=== PATIENT | male | born 1975 | race Caucasian/White ===

== ENCOUNTER 2022-05-11 01:22 | Emergency (ER) | payer MEDICAID, SELFPAY ==
[2022-05-11 01:31] VITALS: BP 156/93; PULSE 62; RESP 18; TEMP 36.5; O2SAT 97; BMI 32.3
--- NOTE | 2022-05-11 02:37 | CTR_ITS ---
PROCEDURE INFORMATION: Exam: CT Abdomen And Pelvis Without Contrast Exam date and time: 05/11/2022 2:55 AM Age: 46 years old Clinical indication: Nausea and vomiting; Abdominal pain; Localized; Left lower quadrant (llq); Patient HX: Llq/groin pain with n/v and dysuria. ; Additional info: Llq pain, n/v, pain, HX of stone TECHNIQUE: Imaging protocol: Computed tomography of the abdomen and pelvis without contrast. Radiation optimization: All CT scans at this facility use at least one of these dose optimization techniques: automated exposure control; mA and/or kV adjustment per patient size (includes targeted exams where dose is matched to clinical indication); or iterative reconstruction. COMPARISON: No relevant prior studies available. RADIATION DOSE METRICS: Total DLP (mGy-cm): 894.03 FINDINGS: Lungs: The lung bases are clear. No effusion Liver: Normal. No mass. Gallbladder and bile ducts: No wall thickening, pericholecystic fluid or stones. Pancreas: Normal. No ductal dilation. Spleen: Normal. No splenomegaly. Adrenal glands: Normal. No mass. Kidneys and ureters: 5 mm mildly obstructing left distal ureteral stone. 3 mm nonobstructing right renal pelvis stone. Stomach and bowel: Diverticulosis without diverticulitis. Appendix: No evidence of appendicitis. Intraperitoneal space: Unremarkable. No free air. No significant fluid collection. Vasculature: Unremarkable. No abdominal aortic aneurysm. Lymph nodes: Unremarkable. No enlarged lymph nodes. Urinary bladder: Unremarkable as visualized. Reproductive: Unremarkable as visualized. Bones/joints: Unremarkable. No acute fracture. Soft tissues: Unremarkable. CT/CT kidney stone [id number] IMPRESSION: 1. 5 mm mildly obstructing left distal ureteral stone. 2. 3 mm nonobstructing right renal pelvis stone. 3. Diverticulosis without diverticulitis.
--- NOTE | 2022-05-11 02:39 | W.ED.ABDPA2 ---
Documented by User: CITLALY Pacheco 05/11/22 03:15 HPI - Abdominal Pain General: Chief Complaint: Abdominal Pain Stated Complaint: Possible Kidney Stones Time Seen by Provider: 05/11/22 01:35 Source: patient and family Mode of arrival: ambulatory Limitations: no limitations History of Present Illness: Patient presents to the emergency department tonight accompanied by his for evaluation treatment of left lower quadrant/left groin pain. Patient states he has felt a little off for couple weeks but, tonight his pain got significantly worse. He does have a history of previous kidney stone on the left side. He notes worsening waves of pain with associated nausea and vomiting. stated he had some Flomax and Toradol still at the house and took some earlier in the evening but has not seem to help. Associated Symptoms: Reports nausea and vomiting Review of Systems General: Reports: 10 or more systems reviewed and unremarkable except in HPI and below GI: Reports: abdominal pain (LLQ), nausea and vomiting PFSH ED PFSH: Medical History Urolithiasis Multi stone former. May 2022 5 mm left distal ureteral stone and additional RIGHT renal pelvic stone (3 mm) Family History Mother Healthy adult Father Healthy adult Social History Smoking and tobacco status: never smoked Alcohol intake: current Alcohol intake frequency: holidays/special occasions only Adopted: No Marital status: Current occupational status: employed History of recent travel: No Physical Exam Const: COMMON NORMALS: patient oriented x3 and alert; apparent distress (patient is obviously uncomfortable) HENMT: COMMON NORMALS: normocephalic, atraumatic, hearing grossly normal bilaterally and moist oral mucous membranes HEAD & SCALP: normocephalic and atraumatic Eye: COMMON NORMALS: Equal, round and reactive pupils present, EOMs intact bilaterally and conjunctivae normal CONJUNCTIVA: Yes conjunctivae normal PUPIL: Yes Equal, round and reactive pupils present Neck/C-Spine: COMMON NORMALS: full ROM and no JVD Lymph: LYMPHATIC: no lymphadenopathy noted Resp: COMMON NORMALS: normal respiratory effort, No retractions, No use of accessory muscles and clear to auscultation bilaterally AUSCULTATION: clear to auscultation bilaterally Cardio: COMMON NORMALS: no JVD, regular rate and regular rhythm RATE: regular rate RHYTHM: regular rhythm : COMMON NORMALS: Yes no CVA tenderness BLADDER/KIDNEY EXAM: Yes no CVA tenderness Back/Pelvis: COMMON NORMALS: no CVA tenderness, no thoracic nor lumbar tenderness and thoraco-lumbar ROM normal Extremity: COMMON NORMALS: normal to inspection, full ROM and capillary refill normal Neuro: COMMON NORMALS: patient oriented x3 SENSORIUM/ORIENTATION: Yes alert Psych: COMMON NORMALS: mental status grossly normal, Normal thought process present, cooperative, normal affect and activity/motor behavior normal THOUGHT PROCESS: Normal thought process present Skin: COMMON NORMALS: no rashes or lesions noted and no wounds NARRATIVE SKIN EXAM: Patient appears pale. GENERAL SKIN EXAM: no rashes or lesions noted Course Vital Signs: Vital signs: Vital Signs Temperature 97.7 F 05/11/22 01:31 Pulse Rate 61 05/11/22 05:32 Respiratory Rate 16 05/11/22 05:32 Blood Pressure 157/97 05/11/22 05:32 Pulse Oximetry 97 05/11/22 05:32 Oxygen Delivery Me thod 05/11/22 04:00 Oxygen Flow Rate 2 05/11/22 04:00 MDM - Abdominal Pain Medical Decision Making Patient presents emergency department today for evaluation treatment of severe left lower quadrant and left groin pain and. He has had a history of kidney stones in the past and indicated this felt similar. He had some leftover medication at home which he took this past evening without relief. Patient comes in still nauseated and vomiting. He appears pale at bedside. Urinalysis collected and IV placed to collect labs. Patient was also given fluids, Toradol, Zofran, and morphine. CT renal stone ordered. Transfer of care to Dr Lizama given at 0315 Differential Diagnosis Likely abdominal pain, acute appendicitis, calculus of kidney, constipation, diverticulitis, gastroenteritis and small bowel obstruction Lab Data 05/11/22 02:45 05/11/22 02:45 Labs/Radiology: Radiology Impressions Abdomen/Pelvis CT 05/11/22 02:37 IMPRESSION: 1. 5 mm mildly obstructing left distal ureteral stone. 2. 3 mm nonobstructing right renal pelvis stone. 3. Diverticulosis without diverticulitis. Laboratory Results WBC 7.7 10^3/uL (4.0-10.0) 05/11/22 02:45 RBC 5.37 10^6/uL (4.1-5.3) H 05/11/22 02:45 Hgb 15.3 g/dL (11.7-16.6) 05/11/22 02:45 Hct 45.3 % (42.0-52.0) 05/11/22 02:45 MCV 84.4 fl (80-94) 05/11/22 02:45 MCH 28.5 pg (28.0-34.0) 05/11/22 02:45 MCHC 33.8 g/dL (30.0-36.0) 05/11/22 02:45 RDW 12.9 % (12.1-15.1) 05/11/22 02:45 Plt Count 174 10^3/cmm (130-400) 05/11/22 02:45 MPV 11.4 fL (7.4-10.4) H 05/11/22 02:45 Neut % (Auto) 82.9 % 05/11/22 02:45 Lymph % (Auto) 11.0 % 05/11/22 02:45 Glasscock % (Auto) 5.0 % 05/11/22 02:45 Eos % (Auto) 0.4 % 05/11/22 02:45 Baso % (Auto) 0.3 % 05/11/22 02:45 Neut # (Auto) 6.35 10^3/uL (1.8-7.7) 05/11/22 02:45 Lymph # (Auto) 0.8 10^3/uL (0.8-4.8) 05/11/22 02:45 Glasscock # (Auto) 0.4 10^3/uL (0.2-0.9) 05/11/22 02:45 Eos # (Auto) 0.0 10^3/uL (0.0-0.8) 05/11/22 02:45 Baso # (Auto) 0.0 10^3/uL (0.0-0.1) 05/11/22 02:45 Nucleated RBC % (auto) 0 % 05/11/22 02:45 Nucleated RBCs # 0.0 /100WBC 05/11/22 02:45 Sodium 138 mmol/L (136-145) 05/11/22 02:45 Potassium 4.1 mmol/L (3.5-5.1) 05/11/22 02:45 Chloride 102 mmol/L (98-107) 05/11/22 02:45 Carbon Dioxide 24 mmol/L (22-29) 05/11/22 02:45 Anion Gap 16.1 (5-19) 05/11/22 02:45 BUN 21 mg/dL (6-20) H 05/11/22 02:45 Creatinine 1.3 mg/dL (0.7-1.2) H 05/11/22 02:45 GFR Calculation 59.7 mL/min (90-130) L 05/11/22 02:45 Glucose 122 mg/dL (65-115) H 05/11/22 02:45 Calculated Osmolality 290 mOsm/kg (285-295) 05/11/22 02:45 Calcium 8.8 mg/dL (8.5-10.5) 05/11/22 02:45 Total Bilirubin 0.5 mg/dL (0.15-1.2) 05/11/22 02:45 AST 40 U/L (0-40) 05/11/22 02:45 ALT 53 U/L (0-41) H 05/11/22 02:45 Alkaline Phosphatase 76 U/L (40-130) 05/11/22 02:45 Total Protein 6.9 g/dL (6.6-8.7) 05/11/22 02:45 Albumin 4.6 g/dL (3.5-5.2) 05/11/22 02:45 Globulin 2.3 g/dL (1.3-4.6) 05/11/22 02:45 Urine Color Yellow (Yellow) 05/11/22 02:30 Urine Appearance Clear (CLEAR) 05/11/22 02:30 Urine pH 5 (5-7) 05/11/22 02:30 Ur Specific Maud 1.030 (1.005-1.030) 05/11/22 02:30 Urine Protein Trace (Negative) 05/11/22 02:30 Urine Glucose (UA) Norm (Normal) 05/11/22 02:30 Urine Ketones Negative (Negative) 05/11/22 02:30 Urine Blood Neg (Negative) 05/11/22 02:30 Urine Nitrate Negative (Negative) 05/11/22 02:30 Urine Bilirubin Neg (Negative) 05/11/22 02:30 Urine Urobilinogen Norm mg/dL (Negative) 05/11/22 02:30 Ur Leukocyte Esterase Negative (Negative) 05/11/22 02:30 Urine RBC None /hpf (0-2) 05/11/22 02:30 Urine WBC None /hpf (0-5) 05/11/22 02:30 Ur Squamous Epith Cells None /hpf (0-5) 05/11/22 02:30 Calcium Oxalate Crystal 0-4 /hpf H 05/11/22 02:30 Amorphous Sediment 3+ /hpf 05/11/22 02:30 Urine Bacteria None /hpf (NONE) 05/11/22 02:30 Discharge Plan Discharge Patient Disposition: Home Clinical Impression: Ureterolithiasis Condition: Stable Prescriptions: New ondansetron 4 mg tablet,disintegrating 4 mg PO Q8H PRN (Reason: nausea and vomiting) Qty: 15 0RF oxycodone 5 mg tablet 5 mg PO Q4H PRN (Reason: pain) Qty: 20 0RF Flomax 0.4 mg capsule 0.4 mg PO DAILY Qty: 20 0RF Discharge Orders: Discharge ED (Routine); Ordered 05/11/22 Ordered By: Heron Lizama Discharge Diet: Usual diet Discharge Activity: Increase activity as tolerated Patient Instructions: Ureteral Stones (ED), Opioid Safety Activity Restrictions/Additional Instructions: Thank you for visiting the emergency department. You were seen and evaluated for abdominal pain. The most likely cause of your symptoms is a kidney stone that has descended into the ureter. I will prescribe pain medications, antinausea medication, and Flomax. I will message case management for follow-up with urology. Please strain your urine. You may use aolo-kef-bjhzgei medications such as acetaminophen and ibuprofen for pain however please do not exceed the daily recommended dosage as listed on the packaging and please keep in mind that many namebrand medications contain the same active ingredients. Please avoid these medications if previously instructed to do so by another physician due to other underlying medical condition. Return to the emergency department for uncontrolled symptoms or anything else that you are concerned about and feel needs emergency department evaluation. Sign Out Sign Out Data: Patient Sign Out occurred on 05/11/22 at 03:23. Patient's care was discussed, and care was transferred from to Heron Lizama MD. Coding Level of Care Code ED Dental Office Coordinator for Chg Fwd Exam Comprehensive Documented by User: Heron Lizama MD 05/18/22 06:09 HPI - Abdominal Pain General: Chief Complaint: Abdominal Pain Stated Complaint: Possible Kidney Stones Time Seen by Provider: 05/11/22 01:35 PFSH ED PFSH: Medical History Urolithiasis Multi stone former. May 2022 5 mm left distal ureteral stone and additional RIGHT renal pelvic stone (3 mm) Family History Mother Healthy adult Father Healthy adult Social History Smoking and tobacco status: never smoked Alcohol intake: current Alcohol intake frequency: holidays/special occasions only Adopted: No Marital status: Current occupational status: employed History of recent travel: No Course Vital Signs: Vital signs: Vital Signs Temperature 97.7 F 05/11/22 01:31 Pulse Rate 61 05/11/22 05:32 Respiratory Rate 16 05/11/22 05:32 Blood Pressure 157/97 05/11/22 05:32 Pulse Oximetry 97 05/11/22 05:32 Oxygen Delivery Me thod 05/11/22 04:00 Oxygen Flow Rate 2 05/11/22 04:00 MDM - Abdominal Pain Medical Decision Making Patient presents emergency department today for evaluation treatment of severe left lower quadrant and left groin pain and. He has had a history of kidney stones in the past and indicated this felt similar. He had some leftover medication at home which he took this past evening without relief. Patient comes in still nauseated and vomiting. He appears pale at bedside. Urinalysis collected and IV placed to collect labs. Patient was also given fluids, Toradol, Zofran, and morphine. CT renal stone ordered. Transfer of care to Dr Lizama given at 0315 Patient care handoff received from CITLALY Good. I reviewed documentation. I personally saw and evaluated patient and reperformed lau portions of E/M. Laboratory studies reviewed with hematuria noted, mild elevation of ALT and creatinine, no evidence of significant infection. CT imaging notable for 5 mm obstructing left distal ureteral stone. Patient feels improved with symptom control with fluids, analgesia, antiemetic. Plan to have patient follow-up with urology. The results of ED evaluation were discussed with the patient including prescriptions and/or symptomatic cares (if applicable) including appropriate and responsible use, followup plan, and return precautions. The patient verbalized understanding and felt safe for discharge. Lab Data 05/11/22 02:45 05/11/22 02:45 Labs/Radiology: Radiology Impressions Abdomen/Pelvis CT 05/11/22 02:37 IMPRESSION: 1. 5 mm mildly obstructing left distal ureteral stone. 2. 3 mm nonobstructing right renal pelvis stone. 3. Diverticulosis without diverticulitis. Laboratory Results WBC 7.7 10^3/uL (4.0-10.0) 05/11/22 02:45 RBC 5.37 10^6/uL (4.1-5.3) H 05/11/22 02:45 Hgb 15.3 g/dL (11.7-16.6) 05/11/22 02:45 Hct 45.3 % (42.0-52.0) 05/11/22 02:45 MCV 84.4 fl (80-94) 05/11/22 02:45 MCH 28.5 pg (28.0-34.0) 05/11/22 02:45 MCHC 33.8 g/dL (30.0-36.0) 05/11/22 02:45 RDW 12.9 % (12.1-15.1) 05/11/22 02:45 Plt Count 174 10^3/cmm (130-400) 05/11/22 02:45 MPV 11.4 fL (7.4-10.4) H 05/11/22 02:45 Neut % (Auto) 82.9 % 05/11/22 02:45 Lymph % (Auto) 11.0 % 05/11/22 02:45 Glasscock % (Auto) 5.0 % 05/11/22 02:45 Eos % (Auto) 0.4 % 05/11/22 02:45 Baso % (Auto) 0.3 % 05/11/22 02:45 Neut # (Auto) 6.35 10^3/uL (1.8-7.7) 05/11/22 02:45 Lymph # (Auto) 0.8 10^3/uL (0.8-4.8) 05/11/22 02:45 Glasscock # (Auto) 0.4 10^3/uL (0.2-0.9) 05/11/22 02:45 Eos # (Auto) 0.0 10^3/uL (0.0-0.8) 05/11/22 02:45 Baso # (Auto) 0.0 10^3/uL (0.0-0.1) 05/11/22 02:45 Nucleated RBC % (auto) 0 % 05/11/22 02:45 Nucleated RBCs # 0.0 /100WBC 05/11/22 02:45 Sodium 138 mmol/L (136-145) 05/11/22 02:45 Potassium 4.1 mmol/L (3.5-5.1) 05/11/22 02:45 Chloride 102 mmol/L (98-107) 05/11/22 02:45 Carbon Dioxide 24 mmol/L (22-29) 05/11/22 02:45 Anion Gap 16.1 (5-19) 05/11/22 02:45 BUN 21 mg/dL (6-20) H 05/11/22 02:45 Creatinine 1.3 mg/dL (0.7-1.2) H 05/11/22 02:45 GFR Calculation 59.7 mL/min (90-130) L 05/11/22 02:45 Glucose 122 mg/dL (65-115) H 05/11/22 02:45 Calculated Osmolality 290 mOsm/kg (285-295) 05/11/22 02:45 Calcium 8.8 mg/dL (8.5-10.5) 05/11/22 02:45 Total Bilirubin 0.5 mg/dL (0.15-1.2) 05/11/22 02:45 AST 40 U/L (0-40) 05/11/22 02:45 ALT 53 U/L (0-41) H 05/11/22 02:45 Alkaline Phosphatase 76 U/L (40-130) 05/11/22 02:45 Total Protein 6.9 g/dL (6.6-8.7) 05/11/22 02:45 Albumin 4.6 g/dL (3.5-5.2) 05/11/22 02:45 Globulin 2.3 g/dL (1.3-4.6) 05/11/22 02:45 Urine Color Yellow (Yellow) 05/11/22 02:30 Urine Appearance Clear (CLEAR) 05/11/22 02:30 Urine pH 5 (5-7) 05/11/22 02:30 Ur Specific Maud 1.030 (1.005-1.030) 05/11/22 02:30 Urine Protein Trace (Negative) 05/11/22 02:30 Urine Glucose (UA) Norm (Normal) 05/11/22 02:30 Urine Ketones Negative (Negative) 05/11/22 02:30 Urine Blood Neg (Negative) 05/11/22 02:30 Urine Nitrate Negative (Negative) 05/11/22 02:30 Urine Bilirubin Neg (Negative) 05/11/22 02:30 Urine Urobilinogen Norm mg/dL (Negative) 05/11/22 02:30 Ur Leukocyte Esterase Negative (Negative) 05/11/22 02:30 Urine RBC None /hpf (0-2) 05/11/22 02:30 Urine WBC None /hpf (0-5) 05/11/22 02:30 Ur Squamous Epith Cells None /hpf (0-5) 05/11/22 02:30 Calcium Oxalate Crystal 0-4 /hpf H 05/11/22 02:30 Amorphous Sediment 3+ /hpf 05/11/22 02:30 Urine Bacteria None /hpf (NONE) 05/11/22 02:30 Discharge Plan Discharge Patient Disposition: Home Clinical Impression: Ureterolithiasis Condition: Stable Prescriptions: New ondansetron 4 mg tablet,disintegrating 4 mg PO Q8H PRN (Reason: nausea and vomiting) Qty: 15 0RF oxycodone 5 mg tablet 5 mg PO Q4H PRN (Reason: pain) Qty: 20 0RF Flomax 0.4 mg capsule 0.4 mg PO DAILY Qty: 20 0RF Discharge Orders: Discharge ED (Routine); Ordered 05/11/22 Ordered By: Heron Lizama Discharge Diet: Usual diet Discharge Activity: Increase activity as tolerated Patient Instructions: Ureteral Stones (ED), Opioid Safety Activity Restrictions/Additional Instructions: Thank you for visiting the emergency department. You were seen and evaluated for abdominal pain. The most likely cause of your symptoms is a kidney stone that has descended into the ureter. I will prescribe pain medications, antinausea medication, and Flomax. I will message case management for follow-up with urology. Please strain your urine. You may use rttf-okj-viaenym medications such as acetaminophen and ibuprofen for pain however please do not exceed the daily recommended dosage as listed on the packaging and please keep in mind that many namebrand medications contain the same active ingredients. Please avoid these medications if previously instructed to do so by another physician due to other underlying medical condition. Return to the emergency department for uncontrolled symptoms or anything else that you are concerned about and feel needs emergency department evaluation. Sign Out Sign Out Data: Patient Sign Out occurred on 05/11/22 at 03:23. Patient's care was discussed, and care was transferred from to Heron Lizama MD. Coding Level of Care Code ED Dental Office Coordinator for Chg Fwd Exam Comprehensive
[2022-05-11] MEDS: ondansetron 2 mg/ML SDV 2 mL 4 MG IVP (02:45)
[2022-05-11] MEDS: ketorolac 30 mg/mL INJ IVP (02:47)
[2022-05-11 02:50] VITALS: RESP 16
[2022-05-11] MEDS: morphine 4 mg/mL SDV 1 mL IVP ×2 (02:50→05:01)
[2022-05-11] MEDS: sodium chloride 0.9% 1,000 ML 999 ML IV (02:56)
[2022-05-11 03:06] LABS: Basophils % 0.3 %; Eosinophils % 0.4 %; Hematocrit 45.3 % (42.0-52.0); Hemoglobin 15.3 g/dL (11.7-16.6); Lymphocytes # 0.8 10^3/uL (0.8-4.8); Mean Corpuscular HGB Conc 33.8 g/dL (30.0-36.0); Mean Corpuscular Hemoglobin 28.5 pg (28.0-34.0); Mean Corpuscular Volume 84.4 fl (80-94); Mean Platelet Volume 11.4 fL (7.4-10.4); Monocytes # 0.4 10^3/uL (0.2-0.9); Neutrophils # 6.35 10^3/uL (1.8-7.7); Neutrophils % 82.9 %; Nucleated Red Blood Cells % 0 %; Platelet Count 174 10^3/cmm (130-400); Red Blood Count 5.37 10^6/uL (4.1-5.3); Red Cell Distribution Width 12.9 % (12.1-15.1); White Blood Count 7.7 10^3/uL (4.0-10.0)
[2022-05-11 03:06] LABS: Add Urine Microscopic? YES; Bilirubin Urine Neg (Negative); Blood Urine Neg (Negative); Glucose Urine UA Norm (Normal); Ketones Urine Negative (Negative); Leukocyte Esterase Urine Negative (Negative); Nitrate Urine Negative (Negative); Protein Urine Trace (Negative); Urine Appearance Clear (CLEAR); Urine Color Yellow (Yellow); Urobilinogen Urine Norm (Negative); pH Urine 5 (5-7)
[2022-05-11 03:07] VITALS: BP 140/73; PULSE 68; RESP 16; O2SAT 92
--- NOTE | 2022-05-11 03:11 | PC.NURSE ---
patient resting in bed, NAD notes at this time. No needs voiced. will continue to monitor
[2022-05-11 03:25] LABS: Alanine Aminotransferase 53 U/L (0-41); Albumin Level 4.6 g/dL (3.5-5.2); Alkaline Phosphatase 76 U/L (40-130); Anion Gap 16.1 (5-19); Aspartate Amino Transferase 40 U/L (0-40); Blood Urea Nitrogen 21 mg/dL (6-20); Calcium 8.8 mg/dL (8.5-10.5); Carbon Dioxide 24 mmol/L (22-29); Chloride 102 mmol/L (98-107); Globulin 2.3 g/dL (1.3-4.6); Glomerular Filtration Rate 59.7 mL/min (90-130); Glucose 122 mg/dL (65-115); Osmolality Calculated 290 mOsm/kg (285-295); Potassium 4.1 mmol/L (3.5-5.1); Sodium 138 mmol/L (136-145); Total Bilirubin 0.5 mg/dL (0.15-1.2); Total Protein 6.9 g/dL (6.6-8.7)
[2022-05-11 03:30] LABS: Add Urine Culture? No; Amorphous Sediment Urine 3+ /hpf; Calcium Oxalate Crystals Urine 0-4 /hpf
[2022-05-11 04:00] VITALS: BP 150/77; PULSE 66; O2SAT 100
[2022-05-11 05:01] VITALS: RESP 16
[2022-05-11 05:32] VITALS: BP 157/97; PULSE 61; RESP 16; O2SAT 97
--- NOTE | 2022-05-11 09:29 | DCPLANNER ---
Addendum entered by Alaina Noyola 05/21/22 14:47: Patient had a follow up appointment scheduled with urology - patient did attend appointment Addendum entered by Alaina Noyola 05/12/22 10:36: Patient has a follow up appointment scheduled for Saturday, May 14, 2022 at 7:[address] Robbins at urology. Clinic will call patient with appointment information. Original Note: volunteer services manager had message to schedule a follow up appointment for patient with urology. volunteer services manager sent patients information to the front office staff at urology. Patients information will be printed and reviewed. Clinic will call patient with appointment information.
== END 2022-05-11 05:33 | disposition home or self-care (01) ==
PROVIDERS: Physician Assistant; Emergency Provider Emergency Medicine
DX: N20.1 Calculus of ureter (principal)
CPT/HCPCS: 74176; 80053; 81001; 85025; 96361; 96374; 96375; 96376; 99285; J1885; J2270; J2405; J7030

== ENCOUNTER 2022-05-14 07:08 | Outpatient (CLI) | payer MEDICAID, SELFPAY ==
--- NOTE | 2022-05-14 07:22 | XR_ITS ---
WS: [id number] XR KUB [id number] REASON FOR EXAM: stones FINDINGS: The small right intrarenal calculus identified on the previous CT scan of 05/11/2022 is not readily id entifiable. There is a calcification in the left lower pelvis consistent with the calculus at the left ureteral v esicle junction demonstrated on the recent CT. No other abnormality of the abdomen. XR/XR KUB [id number] IMPRESSION: Distal left ureteral calculus.
== END 2022-05-14 07:09 | disposition home or self-care (01) ==
LOC: RAD 07:10
PROVIDERS: Visit Provider Urology
DX: N20.1 Calculus of ureter (principal)
CPT/HCPCS: 74018; 81003

== ENCOUNTER 2022-08-02 13:51 | Outpatient (CLI) | payer MEDICAID, SELFPAY ==
--- NOTE | 2022-08-02 14:12 | XR_ITS ---
WS: [email or web address] XR KUB [id number] REASON FOR EXAM: STONES/CALCULUS OF L URETER FINDINGS: No intrarenal or abdominal ureteral calculi are identified. There is a 5 mm angular calcification in the left pelvis. The location is unchanged compared to 2022. CT scan of 05/11/2022 demonstrated the calcification represent a calculus at the left ureterovesical j unction. No other significant abdominal finding. XR/XR KUB [id number] IMPRESSION: Distal left ureteral calculus as above.
== END 2022-08-02 13:52 | disposition home or self-care (01) ==
PROVIDERS: Visit Provider Urology
DX: N20.1 Calculus of ureter (principal)
CPT/HCPCS: 74018; 81003

== ENCOUNTER 2022-08-25 15:05 | Outpatient (CLI) | payer MEDICAID, SELFPAY ==
--- NOTE | 2022-08-25 15:18 | XR_ITS ---
WS: [id number] Exam: XR KUB [id number] Date/Time of Exam: 08/25/2022 3:18 PM Reason For Exam: STONES No bowel obstruction or free air. No calcifications seen in the region of the kidneys. No sign of org an enlargement. A 5 mm calcification is again noted in the left pelvis and may represent the previous ly reported distal left ureteral stone. It is slightly more distal in location than noted on the prio r study. It might be at the UV junction or within the bladder. Regional bony elements are intact. XR/XR KUB [id number] IMPRESSION: 1. 5 mm left pelvic calcification slightly more inferior in location than noted on the prior study. This may represent the previously reported urinary tract s tone that may be near the UV junction or in the bladder.
== END 2022-08-25 15:06 | disposition home or self-care (01) ==
LOC: RAD 15:13
PROVIDERS: PCP Urology; Visit Provider Urology
DX: N20.9 Urinary calculus, unspecified (principal); N20.1 Calculus of ureter
CPT/HCPCS: 74018; 81003; 99214

== ENCOUNTER 2022-09-01 05:41 | Day surgery (SDC) | payer MEDICAID, SELFPAY ==
[2022-08-31 10:36] VITALS: BMI 31.4
[2022-09-01] VITALS (8 sets, daily range): BP systolic 121–160; BP diastolic 75–97; PULSE 63–85; RESP 18; TEMP 36.3–36.6; O2SAT 94–98
--- NOTE | 2022-09-01 05:48 | SC_ITS ---
WS: [id number] for Urology REASON FOR EXAM: Left ureteroscopy FINDINGS: Persistent distal left ureteral calculus. Left ureteral stent placement. Proximal portion of the ureteral stent is in proper position. SC/C-[facility] for [facility] IMPRESSION: Left ureteral stent placement.
--- NOTE | 2022-09-01 05:48 | XRR_ITS ---
PROCEDURE INFORMATION: Exam: XR Abdomen Exam date and time: 09/01/2022 5:55 AM Age: 47 years old Clinical indication: Condition or disease; Kidney or ureter condition; Calculus (stone) in kidney; Additional info: Preop left ureteroscopy for refractory left distal ureteral TECHNIQUE: Imaging protocol: Radiologic exam of the abdomen. Views: Frontal supine view of the abdomen. 1 View. COMPARISON: 1. CR XR KUB [id number] 08/25/2022 3:[address] kidney stone [id number] 05/11/2022 2:55 AM FINDINGS: Gastrointestinal tract: Bowel gas pattern is unremarkable. No sign of obstruction. Intraperitoneal space: There is a 5 mm calcification in the deep pelvis on the left. No visible stones on the right. Bones/joints: Bones are unremarkable. XR/XR KUB [id number] IMPRESSION: Persistent 5 mm stone at the left ureterovesical junction since 05/11/2022.
[2022-09-01] MEDS: sodium chloride 0.9% 1,000 ML 30 ML IV (06:11)
--- NOTE | 2022-09-01 06:30 | ANES.PREANE2 ---
Pre-Anesthetic Assessment Height/Weight: Height 1.8 m Weight 102.058 kg Temp Pulse Resp BP Pulse Ox 97.4 F L 75 18 160/95 98 09/01/22 06:13 09/01/22 06:13 09/01/22 06:13 09/01/22 06:13 09/01/22 06:13 Preop Diagnosis: Refractory left distal ureteral stone Operation Date: 09/01/22 07:00 Proposed Procedures p CYSTOSCOPY LEFT: RETROGRADE,URETEROSCOPY, LASER STENT [id number] Mod 26 36677,N20.0(Not Applicable) - Eliecer Robbins MD s Retrograde Pyelogram(Left) - Eliecer Robbins MD s Laser Lithotripsy(Left) - MD juliana Cooley Ureteral Stent Placement(Left) - Eliecer Robbins MD Familial anesthetic complications: None Was Beta Stella taken within 24 hours: N/A Was Clonidine taken within 24 hours: N/A Last intake: Intake Last Liquid Date 08/31/22 Last Liquid Time 23:00 Last Solid Date 08/31/22 Last Solid Time 21:00 Social No alcohol and No tobacco Exam alert, oriented x 3, clear to auscultation bilaterally and regular rate & rhythm Airway Mallampati: Class II Dentition: other (missing) Anesthetic Plan ASA status: 1 Anesthesia: General Risk of > 500 ml blood loss (7ml/kg in children): No Medications/Allergies Home Medications Medication Instructions Recorded Confirmed Last Taken Type ondansetron 4 mg disintegrating 4 mg PO Q8H PRN nausea and 05/11/22 09/01/22 Unknown Rx tablet vomiting #15 tabs oxycodone 5 mg tablet 5 mg PO Q4H PRN pain #20 tabs 05/11/22 08/31/22 Unknown Rx tamsulosin 0.4 mg capsule (Flomax) 0.4 mg PO DAILY #20 caps 05/11/22 09/01/22 Unknown Rx Allergies Allergy/AdvReac Type Severity Reaction Status Date / Time No Known Allergies Allergy Verified 08/31/22 10:32 Current Medications Generic Name Dose Route Start Last Admin Trade Name Freq PRN Reason Stop Dose Admin Sodium Chloride 1,000 mls @ 30 mls/hr 09/01/22 06:00 09/01/22 06:11 Sodium Chloride 0.9% IV 05/04/23 05:59 30 mls/hr .Q24H ATR Administration PFSH Anesthesia Medical History Urolithiasis Multi stone former. May 2022 5 mm left distal ureteral stone and additional RIGHT renal pelvic stone (3 mm) Family History Mother Healthy adult Father Healthy adult Social History (Updated 08/25/22 @ 15:54 by Hawa Salazar LPN) Smoking and tobacco status: never smoked Alcohol intake: current Alcohol intake frequency: holidays/special occasions only Adopted: No Marital status: Current occupational status: employed Data Anesthesia Cardiac Studies: No Data to Display
--- NOTE | 2022-09-01 07:02 | P.HPUD_ITS ---
Surgery/Procedure H&P Update DATE OF PROCEDURE: September 01, 2022 DATE H&P PERFORMED: 08/25/22 H&P UPDATE INFORMATION: I have reviewed H&P completed within last 30 days, I have examined patient prior to procedure, No changes to prior documentation and H&P is in [facility] [place] [facility] on date indicated PREOP DIAGNOSIS: Refractory left distal ureteral stone PLANNED PROCEDURE: Operation Date: 09/01/22 07:00 Proposed Procedures p CYSTOSCOPY LEFT: RETROGRADE,URETEROSCOPY, LASER STENT [id number] [facility] [place] [id number],N20.0(Not Applicable) - Eliecer Robbins MD s Retrograde Pyelogram(Left) - Eliecer Robbins MD s Laser Lithotripsy(Left) - MD juliana Cooley Ureteral Stent Placement(Left) - Eliecer Robbins MD
--- NOTE | 2022-09-01 07:03 | PM.OP ---
Operative Report Date of procedure: September 01, 2022 Pre-op diagnosis: Refractory left distal ureteral stone Post-op diagnosis: Refractory left distal ureteral stone Procedure done: 1. Cystoscopy, left retrograde ureteropyelogram 2. LEFT ureteroscopy, stone extraction, stent Implants: Left ureteral stent (4.5 Z[place]ian by 30 cm double-pigtail without string) Specimens removed/disposition: Stone Pathology: Left ureteral stone Surgeon: Rosendo Estimated blood loss: Minimal Urine output: Not measured Complications: None Findings: Anesthesia: General Condition: Stable Disposition: PACU Intraoperative findings: The stone was not impacted but there was a narrowed area just distal to the stone impeding its passage After dilation of the intramural tunnel and distal ureteral narrowing, the stone was removed intact easily. Did not require laser. Stent placed in left indwelling Brief History: Malcom is a very pleasant 47-year-old white male recently diagnosed with a left distal ureteral stone on CT scan. He was given a prolonged course of time to see if he could pass a stone but failed to do so. Ultimately decided to proceed with endoscopic treatment of the stone. They report a KUB last July that showed similar appearance of a calcification in that area. He had a single day of symptoms and then none after that and presumed that he had passed the stone. Did not catch it. Its not clear that this is a different stone or the same stone. The degree of dilation of the kidney was significant but not traumatic. On one of his KUBs more recently it appeared that the stone had potentially migrated slightly distally. We reviewed possibly a staged procedure if there is severe edema around the stone that would require stenting for passive dilation in order to safely access the stone with ureteroscopy. We also reviewed the very rare chance of inability to bridge the stone at all with endoscopy or a wire which would necessitate antegrade stent placement with interventional radiology facility. All of this was explained in detail. We also reviewed the typical perioperative limitations and expectations according to the stent and time in. Procedure: After routine preoperative evaluation examination and obtaining of informed consent he was taken to the operating suite on 09/01/2022 where general anesthesia was administered without difficulty after appropriate timeout was performed, SCDs confirmed to be functioning, preoperative antibiotics administered, beta-loy protocol confirmed. Prepped and draped in usual sterile fashion in dorsolithotomy position pain careful attention to avoiding pressure points. 21 [place] cystoscope with 30 degree lens was introduced into the urethral meatus and advanced into the bladder without difficulty. The bladder was systematically examined. No stone was seen. The left ureteral orifice appeared normal. An 8 [place] cone-tip catheter was intubated to the left ureteral orifice for left retrograde ureteropyelogram demonstrating: Normal course and caliber of the left ureter for approximately 2 cm at which point a filling defect consistent with a stone seen previously on imaging. Contrasted flow proximal to the stone. The stone was mobile in the dilated portion of the ureter the ureter proximal to the stone was dilated. No other stones were seen. A flexible tip guidewire was then advanced up the left ureter bypassing the stone. This passed all the way to the kidney curling in the area of the upper pole calyx. The distal ureter was then dilated with a 15 [place] 4 cm balloon to just below the level of the stone. The wire was secured to the drapes as a safety wire. A 7 [place]ian offset semirigid ureteroscope was then advanced next to the guidewire up the left ureter where the stone was encountered in its expected position. 3 [place] grasping forceps were utilized to secure the stone and withdrawn easily with no tension. Stone was dropped into the bladder. The scope was repassed and the ureter examined. There was some mild dilation trauma where the ureter had been narrowed below the level of the stone. For that reason it was decided to leave a stent indwelling. Cystoscope was then backloaded over the guidewire and a 4.5 [place]ian by 30 cm double-pigtail stent was advanced over the guidewire through the cystoscope into appropriate position as confirmed via fluoroscopy and cystoscopy. The stent was confirmed to be working. The stone which had been dropped into the bladder was flushed from the bladder through the cystoscope and sent for pathologic evaluation. Bladder was drained and the procedure was completed. He tolerated procedure well without complications and was awakened in the operating room and returned to PACU in stable condition. PLANS: 1. Anticipate discharge from outpatient surgery 2. Follow-up in about a week for cystoscopy and stent removal No KUB
[2022-09-01] MEDS: levofloxacin-dextrose 5 % 500 MG/100 ML PREMIX 100 MG IV (07:05)
--- NOTE | 2022-09-01 14:05 | ANE.PACU2 ---
Inpatient post-anesthesia follow up: Airway intact: Yes Vital signs: Temperature 97.8 F Pulse Rate 63 Respiratory Rate 18 Blood Pressure 122/77 Pulse Oximetry 96 Oxygen Delivery Me thod Room Air Oxygen Flow Rate Fraction of Inspir ed Oxygen Hydration adequate: Yes Nausea and vomiting: No Pain level: 1 Mental status: Baseline
== END 2022-09-01 09:00 | disposition home or self-care (01) ==
PROVIDERS: PCP Nurse Practitioner Primary Care; Visit Provider Urology
PROC: 0TJB8ZZ Inspection of Bladder, Via Natural or Artificial Opening Endoscopic (ICD-10-PCS; CPT 52000; principal; 2022-09-01 07:00)
PROC: (CPT 74420; 2022-09-01 07:00)
PROC: (CPT 50605; 2022-09-01 07:00)
PROC: (CPT 52332; 2022-09-01 07:00)
PROC: 0TJ98ZZ Inspection of Ureter, Via Natural or Artificial Opening Endoscopic (ICD-10-PCS; CPT 52351; 2022-09-01 07:00)
DX: N20.1 Calculus of ureter (principal)
CPT/HCPCS: 52332; 52352; 74018; 76000; 82365; 88300; C2625; J1100; J1170; J1956; J2405; J2704; J2710; J3010; J3490; J7030